=== PATIENT | male | born 1945 | race Caucasian/White ===

== ENCOUNTER 2019-12-18 09:58 | Emergency (ER) | payer MEDICARE ==
[~2019-12-18] VITALS: Ht 180.3 cm; Wt 84.2 kg
[2019-12-18] MEDS ORDERED: REST30CA PO (10:05)
[2019-12-18] MEDS ORDERED: GABA-845 PO (10:05)
[2019-12-18 10:59] LABS: BASO # 0.1 10^3/uL (0.0-0.2); BASO % 0.6 % (0.0-1.0); EOS # 0.1 10^3/uL (0.0-0.5); EOS % 1.4 % (0.0-3.0); HEMATOCRIT 45.4 % (42.0-52.0); HEMOGLOBIN 14.4 g/dl (13.5-17.5); LYMPH # 1.2 10^3/uL (1.5-5.0); LYMPH % 13.8 % (24.0-44.0); MEAN CORPUSCULAR HGB CONC 31.7 g/dl (32.0-36.5); MEAN CORPUSCULAR VOLUME 94.6 fl (80.0-96.0); MONO # 0.8 10^3/uL (0.0-0.8); NEUTROPHILS # 6.6 10^3/uL (1.5-8.5); PLATELET COUNT, AUTOMATED 252 10^3/uL (150-450); WHITE BLOOD COUNT 8.8 10^3/uL (4.0-10.0)
[2019-12-18 11:18] LABS: BLOOD UREA NITROGEN 15 MG/DL (7-18); C REACTIVE PROTEIN QUANTITATIV 6.68 MG/DL (0.00-0.30); CALCIUM LEVEL 9.4 MG/DL (8.8-10.2); CARBON DIOXIDE LEVEL 29 MEQ/L (21-32); CHLORIDE LEVEL 104 MEQ/L (98-107); CREATININE FOR GFR 0.97 MG/DL (0.70-1.30); GLOMERULAR FILTRATION RATE > 60.0 (>42); GLUCOSE, FASTING 103 MG/DL (70-100); POTASSIUM SERUM 4.5 MEQ/L (3.5-5.1); SODIUM LEVEL 138 MEQ/L (136-145)
[2019-12-18 11:20] LABS: ERYTHROCYTE SEDIMENTATION RATE 30 mm/hr (0-20)
--- NOTE | 2019-12-18 12:23 | REPVR ---
PROCEDURE INFORMATION: Exam: XR Left Ankle Exam date and time: 12/18/2019 11:12 AM Age: 74 years old Clinical indication: Pain; Ankle; Left; Additional info: Wound to L ankle R/O bone involvement TECHNIQUE: Imaging protocol: XR Left ankle. Views: 3 or more views. COMPARISON: No relevant prior studies available. FINDINGS: Bones/joints: Degenerative change. Anatomic alignment. No plain radiographic evidence for osteomyelitis, which is better evaluated with MRI if clinically indicated. Soft tissues: Soft tissue swelling. IMPRESSION: Soft tissue swelling. Electronically signed by: Lucian Bagley On 12/18/2019 12:23:40 PM
[2019-12-18] MEDS ORDERED: BACT800T5 PO (12:39)
[2019-12-18 12:50] VITALS: BP 139/89
== END 2019-12-18 12:52 | disposition home or self-care (01) ==
LOC: M ED 09:58
DX: L02.416 Cutaneous abscess of left lower limb (principal); L03.116 Cellulitis of left lower limb; Z79.899 Other long term (current) drug therapy

== ENCOUNTER → 2019-12-24 | Outpatient (REF) | payer MEDICARE ==
[~2019-12-24] MED LIST: BACT800T5 PO; GABA-845 PO; REST30CA PO
== END ==
LOC: M LAB REF 11:56
PROVIDERS: ATTEND Physician Assistant
DX: I87.312 Chronic venous hypertension (idiopathic) with ulcer of left lower extremity (principal); L97.822 Non-pressure chronic ulcer of other part of left lower leg with fat layer exposed; L81.9 Disorder of pigmentation, unspecified; L30.8 Other specified dermatitis